=== PATIENT | male | born 2000 | race African-American/Black ===

== ENCOUNTER 2024-11-27 14:53 | Emergency (ER) | payer OTHER ==
[2024-11-27] MEDS: methylPREDNISolone SOD SUCCI 125 MG/2 ML VIAL IV STA (15:08)
[2024-11-27] MEDS: LORazepam 1 MG/0.5 ML VIAL IV STA (15:09)
[2024-11-27] MEDS: MAGNESIUM SULFATE-D5W PMX 1 GM in DEXTROSE/WATER 1 100ML.BAG IVPB STA (15:10)
[2024-11-27] MEDS: SODIUM CHLORIDE 0.9% 1,000 ML IV ONE (15:10)
[2024-11-27] MEDS: IPRATROPIUM-ALBUTEROL 3 ML NEB INHALATION STA ×2 (15:13→18:13)
[2024-11-27 15:22] VITALS: TEMP 98.3
[2024-11-27 15:23] LABS: Basophils # (A) 0.12 10*3/uL (0.00-0.10); Basophils % (A) 1.8 %; Eosinophils # (A) 0.74 10*3/uL (0.04-0.35); Eosinophils % (A) 11.0 %; HCT 50.3 % (39.6-50.0); HGB 17.8 g/dL (13.0-17.0); Lymphocytes # (A) 2.36 10*3/uL (0.90-5.00); Lymphocytes % (A) 35.1 %; MCH 27.8 pg (27.0-32.0); MCHC 35.4 g/dL (32.0-37.0); MCV 78.5 fL (80.0-97.0); Monocytes # (A) 0.73 10*3/uL (0.20-1.00); Monocytes % (A) 10.9 %; Neutrophils # (A) 2.74 10*3/uL (1.80-7.70); Neutrophils % (A) 40.8 %; Platelet Count 338 10*3/uL (140-440); RBC 6.41 10*6/uL (4.40-5.60); RDW 12.0 % (11.5-14.5); WBC 6.72 10*3/uL (4.50-10.00)
[2024-11-27 15:24] LABS: VBG HCO3 25.0 mmol/L (24-28); VBG PCO2 54.0 mmHg (37-51); VBG PH 7.28 (7.31-7.41)
--- NOTE | 2024-11-27 15:36 | XR ---
EXAMINATION TYPE: XR chest 1V portable DATE OF EXAM: 11/27/2024 3:31 PM COMPARISON: None. CLINICAL INDICATION: Male, 24 years old with history of dyspnea; [facility] TECHNIQUE: XR chest 1V portable Frontal view of the chest. FINDINGS: Lungs/Pleura: There is no evidence of pleural effusion, focal consolidation, or pneumothorax. Pulmonary vascularity: Unremarkable. Heart/mediastinum: Cardiomediastinal silhouette is unremarkable. Musculoskeletal: No acute osseous pathology. Other findings: None IMPRESSION: No acute cardiopulmonary disease/process. [facility], , 11/27/2024 3:34 PM
[2024-11-27 15:41] LABS: INR 1.1 (<1.2); Partial Thromboplastin Time 23.3 sec (22.0-30.0); Prothrombin Time 12.2 sec (10.0-12.5)
[2024-11-27 15:48] LABS: ALT 48 U/L (4-49); African American GFR (CKD) >90 (>60 ml/min/1.73 sqM); Anion Gap 13 mmol/L; Blood Urea Nitrogen 10 mg/dL (9-20); Calcium 10.2 mg/dL (8.4-10.2); Carbon Dioxide 22 mmol/L (22-30); Chloride 106 mmol/L (98-107); Glucose 103 mg/dL (74-99); Non-African American GFR(CKD) >90 (>60 ml/min/1.73 sqM); Sodium 141 mmol/L (137-145)
[2024-11-27 16:48] LABS: RSV Not Detected (Not Detectd)
[2024-11-27 16:52] LABS: Potassium 5.5 mmol/L (3.5-5.1)
[2024-11-27 16:53] LABS: AST 58 U/L (17-59); Albumin 5.7 g/dL (3.5-5.0); Alkaline Phosphatase 62 U/L (38-126); Magnesium 1.8 mg/dL (1.6-2.3); Total Protein 9.7 g/dL (6.3-8.2)
[2024-11-27 18:25] VITALS: BP 106/59; RESP 12
[2024-11-27 18:26] VITALS: PULSE 86
--- NOTE | 2024-11-27 18:29 | ED ---
General Adult HPI - General Chief complaint: Shortness of Breath Stated complaint: DICK Time Seen by Provider: 11/27/24 14:55 Source: patient, family, RN notes reviewed, old records reviewed Mode of arrival: wheelchair Limitations: no limitations - History of Present Illness Initial comments: 24-year-old male who presents emergency department for shortness of breath. Has history of asthma, that has never been required treatment with BiPAP or intubation in the past. Also has a history of admission for asthma however. States the weather has triggered an asthma exacerbation for him. Cannot take a deep breath in. Does have a history of anxiety as well. Presents for further evaluation. Having hard time catching his breath and speaking any sentences. Primary story and is his brother. He does have a history anxiety as well as remote history of a prior DVT after leg surgery. No other acute complaints at this time. Patient denies any productive cough, fevers, chills. No other acute complaints. - Related Data Previous Rx's Medication Instructions Recorded Albuterol Sulfate [Ventolin HFA] 1 - 2 puff INHALATION Q6H PRN #1 11/27/24 each predniSONE [Deltasone] 40 mg PO DAILY 5 Days #10 tab 11/27/24 Allergies Allergy/AdvReac Type Severity Reaction Status Date / Time No Known Allergies Allergy Verified 11/27/24 15:22 Review of Systems ROS Statement: Those systems with pertinent positive or pertinent negative responses have been documented in the HPI. Review of Systems: CONST: Denies fever EYES: Denies blurry vision ENT: Denies nasal congestion C/V: Denies Chest pain RESP: Endorses shortness of breath GI: Denies abdominal pain : Denies dysuria SKIN: Denies rash. MSK: Denies joint pain. NEURO: Denies headache ROS Other: All systems not noted in ROS Statement are negative. Past Medical History Past Medical History: Asthma Additional Past Medical History / Comment(s): blood clot 1 year ago took blood thinners. Past Surgical History: No Surgical Hx Reported Smoking Status: Current every day smoker Past Alcohol Use History: Unable to Obtain Past Drug Use History: Unable to Obtain General Exam - General Exam Comments Initial Comments: General: Appears in moderate respiratory distress, diaphoretic, with increased work of breathing. HEAD: Normal with no signs of head trauma. EYES: EOMI ENT: Hearing grossly intact, normal oropharynx. RESPIRATORY: Tight breath sounds bilaterally. Significant increased work of breathing with accessory muscle use. Mild hypoxia as well improved with nonrebreather. C/V: Regular rate and rhythm. S1 and S2 auscultated, peripheral pulses 2+ and intact throughout ABD: Abd is soft, nontender, nondistended EXT: No obvious deformity. SKIN: No rashes or lesions observed on exposed skin. NEURO: Alert and oriented x 4. Limitations: no limitations Course Vital Signs 11/27/24 11/27/24 11/27/24 15:13 15:14 15:15 Temperature 98.3 F Pulse Rate 104 H 102 H Respiratory 23 Rate Blood Pressure 144/91 O2 Sat by Pulse 99 Oximetry Fraction of 100 Inspired Oxygen (FIO2) 11/27/24 11/27/24 11/27/24 15:35 15:36 16:15 Temperature Pulse Rate 90 93 67 Respiratory 18 21 Rate Blood Pressure 139/97 144/79 O2 Sat by Pulse 100 100 Oximetry Fraction of 70 Inspired Oxygen (FIO2) 11/27/24 11/27/24 11/27/24 16:38 17:44 18:13 Temperature Pulse Rate 88 75 Respiratory 18 Rate Blood Pressure 154/104 O2 Sat by Pulse 100 95 Oximetry Fraction of Inspired Oxygen (FIO2) 11/27/24 11/27/24 18:20 18:25 Temperature Pulse Rate 100 86 Respiratory 12 Rate Blood Pressure 106/59 O2 Sat by Pulse 100 Oximetry Fraction of Inspired Oxygen (FIO2) Medical Decision Making - Medical Decision Making Was pt. sent in by a medical professional or institution (, PA, [employer], urgent care, hospital, or long term...) When possible be specific @ -No Did you speak to anyone other than the patient for history (EMS, parent, family, police, friend...)? What history was obtained from this source @ -No Did you review nursing and triage notes (agree or disagree)? Why? @ -I reviewed and agree with nursing and triage notes Were old charts reviewed (outside hosp., previous admission, EMS record, old EKG, old radiological studies, urgent care reports/EKG's, long term records)? Report findings @ -No old charts were reviewed Differential Diagnosis (chest pain, altered mental status, abdominal pain women, abdominal pain men, vaginal bleeding, weakness, fever, dyspnea, syncope, headache, dizziness, GI bleed, back pain, seizure, CVA, palpatations, mental he alth, musculoskeletal)? @ -Differential Dyspnea: Coronary syndrome, arrhythmia, tamponade, asthma, COPD, pulmonary embolism, pneumonia, pneumothorax, pulmonary effusion, anaphylaxis, diabetic ketoacidosis, flailed chest, pulmonary contusion, diaphragmatic rupture, anemia, neuromuscular, this is not meant to be an all-inclusive list. EKG interpreted by me (3pts min.). @ -As above X-rays interpreted by me (1pt min.). @ -Chest x-ray shows no obvious acute cardiopulmonary process. CT interpreted by me (1pt min.). @ -None done U/S interpreted by me (1pt. min.). @ -None done What testing was considered but not performed or refused? (CT, X-rays, U/S, labs)? Why? @ -None What meds were considered but not given or refused? Why? @ -None Did you discuss the management of the patient with other professionals (professionals i.e. , PA, [employer] WORK[employer], lab, RT, psych nurse, community mental health social worker, basket grader, teacher, border patrol officer, onsite case manager)? Give summary @ -No Was smoking cessation discussed for >3mins.? @ -No Was critical care preformed (if so, how long)? @ -Yes, 37 minutes Were there social determinants of health that impacted care today? How? (Homelessness, low income, unemployed, alcoholism, drug addiction, transportation, low edu. Level, literacy, decrease access to med. care, half-way, rehab)? @ -No Was there de-escalation of care discussed even if they declined (Discuss DNR or withdrawal of care, Hospice)? DNR status @ -No What co-morbidities impacted this encounter? (DM, HTN, Smoking, COPD, CAD, Cancer, CVA, ARF, Chemo, Hep., AIDS, mental health diagnosis, sleep apnea, morbid obesity)? @ -Asthma Was patient admitted / discharged? Hospital course, mention meds given and route, prescriptions, significant lab abnormalities, going to OR and other pertinent info. @ -Based on patient's presentation and physical exam, presents in significant respiratory distress from asthma exacerbation. Patient has hypoxic, diaphoretic, with gasping respirations. Immediately placed on BiPAP with multiple breathing treatments and given a dose of Ativan as well. Patient's breath sounds did begin to open up, and wheezing was increasing indicative of opening airway. Patient was improving on BiPAP as well. Vitals normalized on BiPAP. He was given in addition to the multiple breathing treatments, 1 L fluid bolus, IV Solu-Medrol, IV magnesium. We will obtain basic labs and observe the patient. At this time I did recommend admission considering he required BiPAP as well as the drastic intervention. He states he will consider it. Chest x-ray shows no obvious acute cardiopulmonary process. EKG shows no signs of acute ischemia. Laboratory studies are all within acceptable limits. H emolyzed potassium however noted normal renal function as well as normal EKG and I suspect that potassium is likely normal. Viral swabs are negative. On reevaluation, patient is doing improved. I once again recommend observation admission considering his significant intervention upon arrival that he required. He declines at this time. He would like to see how he does off BiPAP and this is removed. He was observed for multiple hours. He ambulated. Became wheezy again with some mild dyspnea but nothing significant like earlier. Some mild hypoxia as well but 93 to 94%. I do still recommend admission. We did give an additional breathing treatment. He does not want to be admitted. I believe this is AGAINST MEDICAL ADVICE considering patient's significant intervention upon arrival. He expressed understanding. The patient was apprised of the potential risks of leaving the hospital AGAINST MEDICAL ADVICE, including serious complications, permanent disability, and . At the time of my interview the patient, the patient was alert, oriented, and capable. Patient signed AMA form, which was witnessed and signed by nursing staff, and placed in patient's chart. I urged the patient to return to the hospital as soon as possible to complete evaluation and treatment. I will provide the patient with a prescription for prednisone, albuterol inhaler. I instructed the patient to follow up with their PCP in the next 1-3 days. Strict return precautions were discussed. Undiagnosed new problem with uncertain prognosis? @ -No Drug Therapy requiring intensive monitoring for toxicity (Heparin, Nitro, Insulin, Cardizem)? @ -No Were any procedures done? @ -No Diagnosis/symptom? @ -Acute hypoxic respiratory failure requiring BiPAP secondary to asthma exacerbation, left AMA Acute, or Chronic, or Acute on Chronic? @ -Acute on chronic Uncomplicated (without systemic symptoms) or Complicated (systemic symptoms)? @ -Complicated Side effects of treatment? @ -No Exacerbation, Progression, or Severe Exacerbation? @ -No Poses a threat to life or bodily function? How? (Chest pain, [place], [place], pneumonia, PE, COPD, DKA, ARF, appy, cholecystitis, CVA, Diverticulitis, Homicidal, Suicidal, threat to staff... and all critical care pts) @ -Potentially, yes - Lab Data Result diagrams: 11/27/24 15:00 11/27/24 14:58 Lab Results 11/27/24 11/27/24 11/27/24 Range/Units 14:58 14:58 14:58 WBC (4.50-10.00) 10*3/uL RBC (4.40-5.60) 10*6/uL Hgb (13.0-17.0) g/dL Hct (39.6-50.0) % MCV (80.0-97.0) fL MCH (27.0-32.0) pg MCHC (32.0-37.0) g/dL Plt Count (140-440) 10*3/uL MPV (9.5-12.2) fL Immature Gran % (Auto) % Neutrophils % % Lymphocytes % % Monocytes % % Eosinophils % % Basophils % % Immature Gran # (0.00-0.04) 10*3/uL Neutrophils # (1.80-7.70) 10*3/uL Lymphocytes # (0.90-5.00) 10*3/uL Monocytes # (0.20-1.00) 10*3/uL Eosinophils # (0.04-0.35) 10*3/uL Basophils # (0.00-0.10) 10*3/uL PT 12.2 (10.0-12.5) sec INR 1.1 (<1.2) APTT 23.3 (22.0-30.0) sec VBG pH (7.31-7.41) VBG pCO2 (37-51) mmHg VBG HCO3 (24-28) mmol/L Sodium 141 (137-145) mmol/L Potassium 5.5 H (3.5-5.1) mmol/L Chloride 106 (98-107) mmol/L Carbon Dioxide 22 (22-30) mmol/L Anion Gap 13 mmol/L BUN 10 (9-20) mg/dL Creatinine 1.04 (0.66-1.25) mg/dL Est GFR (CKD-EPI)AfAm >90 (>60 ml/min/1.73 sqM) Est GFR (CKD-EPI)NonAf >90 (>60 ml/min/1.73 sqM) Glucose 103 H (74-99) mg/dL Plasma Lactic Acid Familia 1.7 (0.7-2.0) mmol/L Calcium 10.2 (8.4-10.2) mg/dL Magnesium 1.8 (1.6-2.3) mg/dL Total Bilirubin 1.8 H (0.2-1.3) mg/dL AST 58 (17-59) U/L ALT 48 (4-49) U/L Alkaline Phosphatase 62 (38-126) U/L Total Protein 9.7 H (6.3-8.2) g/dL Albumin 5.7 H (3.5-5.0) g/dL Influenza Type A (PCR) (Not Detectd) Influenza Type B (PCR) (Not Detectd) RSV (PCR) (Not Detectd) SARS-CoV-2 (PCR) (Not Detectd) 11/27/24 11/27/24 11/27/24 Range/Units 14:58 15:00 15:36 WBC 6.72 (4.50-10.00) 10*3/uL RBC 6.41 H (4.40-5.60) 10*6/uL Hgb 17.8 H (13.0-17.0) g/dL Hct 50.3 H (39.6-50.0) % MCV 78.5 L (80.0-97.0) fL MCH 27.8 (27.0-32.0) pg MCHC 35.4 (32.0-37.0) g/dL Plt Count 338 (140-440) 10*3/uL MPV 10.1 (9.5-12.2) fL Immature Gran % (Auto) 0.4 % Neutrophils % 40.8 % Lymphocytes % 35.1 % Monocytes % 10.9 % Eosinophils % 11.0 % Basophils % 1.8 % Immature Gran # 0.03 (0.00-0.04) 10*3/uL Neutrophils # 2.74 (1.80-7.70) 10*3/uL Lymphocytes # 2.36 (0.90-5.00) 10*3/uL Monocytes # 0.73 (0.20-1.00) 10*3/uL Eosinophils # 0.74 H (0.04-0.35) 10*3/uL Basophils # 0.12 H (0.00-0.10) 10*3/uL PT (10.0-12.5) sec INR (<1.2) APTT (22.0-30.0) sec VBG pH 7.28 L (7.31-7.41) VBG pCO2 54 H (37-51) mmHg VBG HCO3 25 (24-28) mmol/L Sodium (137-145) mmol/L Potassium (3.5-5.1) mmol/L Chloride (98-107) mmol/L Carbon Dioxide (22-30) mmol/L Anion Gap mmol/L BUN (9-20) mg/dL Creatinine (0.66-1.25) mg/dL Est GFR (CKD-EPI)AfAm (>60 ml/min/1.73 sqM) Est GFR (CKD-EPI)NonAf (>60 ml/min/1.73 sqM) Glucose (74-99) mg/dL Plasma Lactic Acid Familia (0.7-2.0) mmol/L Calcium (8.4-10.2) mg/dL Magnesium (1.6-2.3) mg/dL Total Bilirubin (0.2-1.3) mg/dL AST (17-59) U/L ALT (4-49) U/L Alkaline Phosphatase (38-126) U/L Total Protein (6.3-8.2) g/dL Albumin (3.5-5.0) g/dL Influenza Type A (PCR) Not Detected (Not Detectd) Influenza Type B (PCR) Not Detected (Not Detectd) RSV (PCR) Not Detected (Not Detectd) SARS-CoV-2 (PCR) Not Detected (Not Detectd) - EKG Data -: EKG Interpreted by Me EKG Comments: 12-lead Electrocardiogram Interpretation Note EKG was reviewed and interpreted by myself. 12-lead ECG performed at 1508 is interpreted by me as revealing sinus tachycardia at a rate of 105 beats per minute. [place] is normal. [place] interval is 159 ms, QRS durations 87 ms, QTc is 370 ms.. There were no ST or T wave abnormalities to suggest myocardial ischemia or injury. R wave progression across the precordium was satisfactory. By my interpretation this EKG is non-diagnostic for acute ischemia. Critical Care Time Critical Care Time: Yes Total Critical Care Time: 37 Disposition Clinical Impression: Asthma exacerbation, Acute hypoxic respiratory failure Disposition: LEFT AGAINST MEDICAL ADVICE Instructions (If sedation given, give patient instructions): Asthma (ED) Prescriptions: predniSONE [Deltasone] 40 mg PO DAILY 5 Days #10 tab Albuterol Sulfate [Ventolin HFA] 1 - 2 puff INHALATION Q6H PRN #1 each PRN Reason: Wheezing Is patient prescribed a controlled substance at d/c from ED?: No Referrals: None,Stated [Primary Care Provider] - 1-2 days Forms: Area PCPs Time of Disposition: 18:29
== END 2024-11-27 18:48 | disposition left against medical advice (07) ==
LOC: EC 14:53
DX: J45.901 Unspecified asthma with (acute) exacerbation (principal); J96.01 Acute respiratory failure with hypoxia; Z11.52 Encounter for screening for COVID-19; Z86.718 Personal history of other venous thrombosis and embolism; Z53.29 Procedure and treatment not carried out because of patient's decision for other reasons; F17.200 Nicotine dependence, unspecified, uncomplicated
CPT/HCPCS: 94660; 94640 ×2; 93005; 80053; 82803; 83605; 83735; 85025; 85610; 85730; 87636; 71045; 99291; 96365; 96366; 96375; J2060; J3475; J2919